=== PATIENT | male | born 1990 | race Caucasian/White ===

== ENCOUNTER 2022-07-30 00:03 | Emergency (ER) | payer OTHER ==
[~2022-07-30] VITALS: Ht 185.4 cm; Wt 72.6 kg
--- NOTE | 2022-07-30 00:10 | NUR ---
PT CAME FROM HOME C/O ABD PAIN X 4HOURS
--- NOTE | 2022-07-30 00:45 | NUR ---
IV SALINE LOCK ESTABLISHED ON LAC#20G INTACT.
[2022-07-30] MEDS ORDERED: IV NS 0.9% 1,000 ML BAG IV ONE (01:00)
[2022-07-30] MEDS ORDERED: ONDANSETRON HCL/PF 4 MG/2 ML VIAL IVP ONE (01:00)
[2022-07-30] MEDS ORDERED: MORPHINE SULFATE INJ 2 MG/ML DISP.SYRIN IV ONE (01:00)
[2022-07-30] MEDS ORDERED: ONDANSETRON HCL/PF 4 MG/2 ML VIAL ONE (01:01)
[2022-07-30] MEDS ORDERED: MORPHINE SULFATE INJ 4 MG/ML DISP.SYRIN ONE (01:02)
[2022-07-30 01:08] LABS: BASOPHILS # (AUTO) 0.1 K/uL (0.0-0.2); BASOPHILS % (AUTO) 0.8 % (0.0-2.0); EOSINOPHILS % (AUTO) 1.2 % (0.0-6.0); HEMATOCRIT 47 % (39-51); LYMPHOCYTES % (AUTO) 23.8 % (20.0-44.0); MEAN CORPUSCULAR HGB CONC 34 g/dl (31.0-36.0); MEAN CORPUSCULAR VOLUME 86 fL (80-96); MONOCYTES # (AUTO) 0.6 K/uL (0.1-1.30); MONOCYTES % (AUTO) 7.3 % (2.0-12.0); NEUTROPHILS # (AUTO) 5.6 K/uL (1.8-8.9); NEUTROPHILS % (AUTO) 66.9 % (43.0-81.0); PLATELET COUNT (AUTO) 253 K/uL (150-450); RED BLOOD CELL COUNT(AUTO) 5.42 MIL/uL (4.5-6.0); WHITE BLOOD COUNT (AUTO) 8.3 K/uL (4.3-11.0)
[2022-07-30] MEDS ORDERED: IOHEXOL-300 100 ML VIAL IV ONE (01:11)
[2022-07-30] MEDS ORDERED: CT SWABBABLE VALVE TRANS SET 1 EA INFUS.SET MC ONE (01:11)
[2022-07-30] MEDS ORDERED: IV NS 0.9% 250 ML IV ONE (01:11)
[2022-07-30 01:18] LABS: CALCIUM, SERUM 9.6 mg/dL (8.5-10.1); CREATININE 1.1 mg/dL (0.6-1.3); POTASSIUM 3.3 mmol/L (3.5-5.1)
[2022-07-30 01:24] LABS: ALBUMIN 4.3 g/dL (3.4-5.0); BILIRUBIN,DIRECT 0.1 mg/dL (0.0-0.2); BILIRUBIN,TOTAL 0.5 mg/dL (0.2-1.0); TOTAL PROTEIN, SERUM 6.9 g/dL (6.4-8.2)
--- NOTE | 2022-07-30 01:35 | NUR ---
PT TO CT VIA GUMARO
--- NOTE | 2022-07-30 01:53 | NUR ---
PT RETURNED FROM CT
[2022-07-30 01:54] LABS: BILIRUBIN,URINE NEGATIVE (NEGATIVE); COLOR,URINE YELLOW (YELLOW); LEUKOCYTE ESTERASE ,URINE NEGATIVE (NEGATIVE); NITRITE, URINE NEGATIVE (NEGATIVE); PH,URINE 8.5 (5.0-8.0); PROTEIN,URINE NEGATIVE (NEGATIVE); UGLUCOSE NEGATIVE (NEGATIVE); UROBILINOGEN,URINE 0.2 EU/dL (0.2)
--- NOTE | 2022-07-30 02:15 | NUR ---
IVF NS STOP TIME @0215. PT TOLERATED WELL.
[2022-07-30] MEDS ORDERED: ONDA4TAB11 PO (03:19)
[2022-07-30] MEDS ORDERED: CIPR-262 PO (03:19)
[2022-07-30] MEDS ORDERED: METR500T PO (03:19)
[2022-07-30] MEDS ORDERED: NAPR-1009 PO (03:28)
[2022-07-30 03:39] VITALS: BP 110/66
--- NOTE | 2022-07-30 03:39 | NUR ---
Patient discharged to home in stable condition. Written and verbal after care instructions given. Patient verbalizes understanding of instruction.IV removed. Catheter intact and site benign. Pressure and 4x4 applied to site. No bleeding noted.
--- NOTE | 2022-07-30 03:40 | NUR ---
Lizz cantu in [facility] - 07/30/22 at 0340 by GABY Patient discharged to home in stable condition. Written and verbal after care instructions given. Patient verbalizes understanding of instruction.
== END 2022-07-30 03:40 | disposition home or self-care (01) ==
LOC: ER 00:05
DX: R10.13 Epigastric pain (principal); R10.31 Right lower quadrant pain
CPT/HCPCS: 99285; 74177; 96374; 96361; 96375; 85025; 80048; 83690; 80076; 81003; 36415; J2270; J2405; J7030; J7050; Q9967